=== PATIENT | female | born 1985 | race Two or more races ===

== ENCOUNTER 2020-06-09 10:26 | Emergency (ER) | payer OTHER ==
[~2020-06-09] VITALS: Ht 167.6 cm; Wt 80.0 kg
[2020-06-09 11:27] LABS: BASO % 0.5 % (0.0-1.0); EOS # 0.1 10^3/uL (0.0-0.5); EOS % 1.6 % (0.0-3.0); HEMATOCRIT 37.9 % (36.0-47.0); HEMOGLOBIN 12.8 g/dl (12.0-15.5); LYMPH # 2.3 10^3/uL (1.5-5.0); LYMPH % 27.3 % (24.0-44.0); MEAN CORPUSCULAR HEMOGLOBIN 26.7 pg (27.0-33.0); MEAN CORPUSCULAR HGB CONC 33.8 g/dl (32.0-36.5); MEAN CORPUSCULAR VOLUME 79.1 fl (80.0-96.0); MONO # 0.6 10^3/uL (0.0-0.8); MONO % 6.8 % (0.0-5.0); NEUTROPHILS # 5.2 10^3/uL (1.5-8.5); NEUTROPHILS % 63.3 % (36.0-66.0); PLATELET COUNT, AUTOMATED 294 10^3/uL (150-450); RED BLOOD COUNT 4.79 10^6/uL (4.00-5.40); WHITE BLOOD COUNT 8.2 10^3/uL (4.0-10.0)
[2020-06-09 11:56] LABS: HCG, SERUM QUALITATIVE NEGATIVE (NEGATIVE)
[2020-06-09 12:02] LABS: ALT/SGPT 22 U/L (12-78); BILIRUBIN,DIRECT 0.2 MG/DL (0.0-0.2); BILIRUBIN,TOTAL 0.5 MG/DL (0.2-1.0); BLOOD UREA NITROGEN 10 MG/DL (7-18); CALCIUM LEVEL 9.2 MG/DL (8.5-10.1); CARBON DIOXIDE LEVEL 27 MEQ/L (21-32); CHLORIDE LEVEL 105 MEQ/L (98-107); CK-MB VALUE MASS < 1.0 NG/ML (<3.6); CPK CREATINE PHOSPHOKINASE 106 U/L (26-192); CREATININE FOR GFR 0.94 MG/DL (0.55-1.30); GLOMERULAR FILTRATION RATE > 60.0 (>60); GLUCOSE, FASTING 85 MG/DL (70-100); MB/CK RELATIVE INDEX 0.94 (< OR =4); POTASSIUM SERUM 3.9 MEQ/L (3.5-5.1); SODIUM LEVEL 135 MEQ/L (136-145); TOTAL PROTEIN 8.2 GM/DL (6.4-8.2)
[2020-06-09 12:03] LABS: ALBUMIN 3.8 GM/DL (3.2-5.2); LIPASE 135 U/L (73-393); TROPONIN I < 0.02 NG/ML (< 0.10)
[2020-06-09 13:10] VITALS: BP 109/71
--- NOTE | 2020-07-01 16:21 | ECGEPIP ---
[facility] - ED Test Date: 2020-06-09 Pat Name: CARMEN JAFFE Department: Room: - Gender: Female [employer] Developer: CARLA : 1985 Requested By: Rosa Price Order Number: [id number] Reading MD: Rosa Price Measurements Intervals [place] Rate: 70 P: 58 NV: 159 QRS: 53 QRSD: 86 T: 40 QT: 385 QTc: 416 Interpretive Statements SINUS RHYTHM NORMAL ECG SEE SCANNED DOWNTIME REPORT.
== END 2020-06-09 13:12 | disposition home or self-care (01) ==
LOC: M ED 10:26 → EDBD 10:26 → M ED 13:12
DX: R07.9 Chest pain, unspecified (principal)

== ENCOUNTER → 2020-07-22 | Outpatient (CLI) | payer OTHER ==
[~2020-07-22] MED LIST: ISOVUE-370 76% 100ML VIAL As Ordered ONE
--- NOTE | 2020-08-01 17:06 | REP ---
CT PULMONARY ANGIOGRAM HISTORY: Chest pain, dyspnea. CT CONTRAST DOSE: 75 mL of intravenous Isovue-[address] FINDINGS: There is good opacification of the pulmonary arterial tree, and there is no CT evidence of pulmonary embolus. Thoracic aorta enhances homogeneous without evidence of aneurysm or dissection. The lung saeed are clear except for a linear plate-like atelectasis in the left lower lobe. No pleural or pericardial effusion is seen. No hilar or mediastinal mass or adenopathy is seen. Normal adrenal glands are observed. The visualized upper abdominal structures are unremarkable. No bony abnormality is seen. IMPRESSION: Linear plate-like atelectasis left lower lobe. Otherwise negative CT pulmonary angiogram. No CT evidence of pulmonary embolus. MTDD
== END ==
LOC: M RAD 08:32
PROVIDERS: ATTEND Physician Assistant
DX: R06.00 Dyspnea, unspecified (principal); R07.9 Chest pain, unspecified; J98.11 Atelectasis

== ENCOUNTER → 2020-08-03 | Outpatient (CLI) | payer OTHER ==
--- NOTE | 2020-08-10 09:45 | SLEEPCENT ---
DATE: 08/03/2020 ORDERED BY: VINNIE Kumar Nocturnal polysomnography was performed for evaluation of sleep physiology in this patient with a history of excessive somnolence and nonrestorative sleep. Eight hours and 5 minutes of data were reviewed. There was 438.5 minutes of sleep identified. Sleep latency was mildly prolonged at 19 minutes. REM latency was normal at 81.5 minutes. Sleep architecture was good with 4 REM cycles. Overall sleep efficiency was 91.4%. The electrocardiogram showed a sinus rhythm with an average heart rate of 60 beats per minute. EEG showed reasonably normal waveforms for wake and sleep. There were only 10 respiratory events identified of 10 seconds in duration or greater for an apnea-hypopnea index within normal limits at 1.4. Snoring was noted over the course of the study. Respiratory- related arousals occurred 1.9 times per hour. There were no significant oxygen desaturations below 90% and limb activity revealed few events. IMPRESSION: Normal nocturnal polysomnography with snoring. [facility]
== END ==
LOC: M SLEEP 20:00
PROVIDERS: ATTEND Physician Assistant
DX: R40.0 Somnolence (principal); R06.83 Snoring

== ENCOUNTER → 2020-11-11 | Outpatient (CLI) | payer SELFPAY | LOC: M LABSMTC 12:41 | PROVIDERS: ATTEND Pediatrics | DX: Z20.822 Contact with and (suspected) exposure to COVID-19 (principal) ==